=== PATIENT | female | born 2000 | race Hispanic/Latino ===

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

== ENCOUNTER 2022-08-15 12:58 | Emergency (ER) | payer OTHER ==
[~2022-08-15] VITALS: Ht 160 cm; Wt 90.9 kg
[~2022-08-15 12:58] MED LIST changes: +COLA100C5 PO; +IBUP80TA PO; +OXYC-517 PO; +PRENCHW PO
[2022-08-15 12:59] VITALS: BP 132/72
[2022-08-15] MEDS ORDERED: NS 1,000 ML IV ONE (13:45)
[2022-08-15 14:28] LABS: BASO % 0.4 % (0.0-1.0); EOS # 0.2 10^3/uL (0.0-0.5); EOS % 2.1 % (0.0-3.0); HEMATOCRIT 43.8 % (36.0-47.0); LYMPH # 1.9 10^3/uL (1.5-5.0); LYMPH % 23.3 % (24.0-44.0); MEAN CORPUSCULAR HEMOGLOBIN 27.7 pg (27.0-33.0); MEAN CORPUSCULAR VOLUME 86.6 fl (80.0-96.0); MONO # 0.4 10^3/uL (0.0-0.8); MONO % 4.2 % (2.0-8.0); NEUTROPHILS # 5.8 10^3/uL (1.5-8.5); NEUTROPHILS % 69.6 % (36.0-66.0); PLATELET COUNT, AUTOMATED 422 10^3/uL (150-450); RED BLOOD COUNT 5.06 10^6/uL (4.00-5.40); WHITE BLOOD COUNT 8.3 10^3/uL (4.0-10.0)
[2022-08-15 14:51] LABS: LIPASE 28 U/L (12-53)
[2022-08-15 14:53] LABS: ALKALINE PHOSPHATASE 95 U/L (46-116); ALT/SGPT 17 U/L (7.0-40); AST/SGOT 13 U/L (<34); BILIRUBIN,DIRECT 0.1 MG/DL (<0.4); BILIRUBIN,TOTAL 0.3 MG/DL (0.3-1.2); BLOOD UREA NITROGEN 19 MG/DL (9-23); CARBON DIOXIDE LEVEL 30 MMOL/L (20-31); CHLORIDE LEVEL 106 MMOL/L (98-107); CREATININE FOR GFR 0.81 MG/DL (0.55-1.30); GLUCOSE, FASTING 92 MG/DL (60-100); SODIUM LEVEL 142 MMOL/L (136-145); TOTAL PROTEIN 7.5 G/DL (5.7-8.2)
[2022-08-15 16:16] LABS: GC DNA AMPLIFICATION NEGATIVE (NEGATIVE)
[2022-08-15] MEDS ORDERED: NITR1CAP11 PO (16:55)
[2022-08-15] MEDS ORDERED: ISOVUE-370 76% 100ML VIAL As Ordered ONE (17:10)
== END 2022-08-15 17:00 | disposition left against medical advice (07) ==
LOC: M ED 12:58
DX: N39.0 Urinary tract infection, site not specified (principal); Z53.9 Procedure and treatment not carried out, unspecified reason; Z79.899 Other long term (current) drug therapy; Z88.6 Allergy status to analgesic agent

== ENCOUNTER 2023-05-28 06:38 | Observation (INO) | payer OTHER ==
[2023-05-28] VITALS (8 sets, daily range): BP systolic 112–126; BP diastolic 55–60; TEMP 96.6–105; O2SAT 94–100
[~2023-05-28] VITALS: Ht 157.5 cm; Wt 102.6 kg
[~2023-05-28 06:38] MED LIST changes: +GABA-1171 PO; +LR 1,000 ML IV SCH; +NITR1CAP11 PO; +ceFAZolin SOD 2 GM in IV 1 EA IV ONE
[2023-05-28 07:04] LABS: HEMATOCRIT 42.4 % (36.0-47.0); HEMOGLOBIN 13.6 g/dl (12.0-15.5); MEAN CORPUSCULAR HGB CONC 32.1 g/dl (32.0-36.5); MEAN CORPUSCULAR VOLUME 87.4 fl (80.0-96.0); PLATELET COUNT, AUTOMATED 409 10^3/uL (150-450); RED BLOOD COUNT 4.85 10^6/uL (4.00-5.40); WHITE BLOOD COUNT 11.2 10^3/uL (4.0-10.0)
[2023-05-28] MEDS ORDERED: LR 1,000 ML IV SCH (07:10)
[2023-05-28] MEDS ORDERED: SUGAMMADEX SODIUM 500 MG/5 ML VIAL (BRIDION) As Ordered ONE (07:15)
[2023-05-28] MEDS ORDERED: MIDAZOLAM INJ 2MG/2ML VIAL As Ordered ONE (07:15)
[2023-05-28] MEDS ORDERED: propofoL 200 MG/20 ML VIAL As Ordered ONE ×2 (07:15→10:39)
[2023-05-28] MEDS ORDERED: fentaNYL 100 MCG/2 ML INJECTION As Ordered ONE (07:15)
[2023-05-28] MEDS ORDERED: ROCURONIUM BROMIDE 50MG/5ML VIAL As Ordered ONE (07:15)
[2023-05-28] MEDS ORDERED: LIDOCAINE 2% 100MG/5ML SDV (FOR ANES.) As Ordered ONE (07:15)
[2023-05-28] MEDS ORDERED: ONDANSETRON 4MG 2ML VIAL As Ordered ONE (07:15)
[2023-05-28] MEDS ORDERED: ACETAMINOPHEN 1000MG 100ML IV BAG As Ordered ONE (08:20)
[2023-05-28] MEDS ORDERED: HYDROmorphone HCL 2MG/ML 1ML VIAL As Ordered ONE (08:45)
[2023-05-28] MEDS ORDERED: KETOROLAC 60MG 2ML VIAL As Ordered ONE (09:33)
[2023-05-28] MEDS ORDERED: fentaNYL 100 MCG/2 ML INJECTION IV PRN (10:30)
[2023-05-28] MEDS ORDERED: ONDANSETRON 4MG 2ML VIAL IV PRN ×2 (10:30→12:35)
[2023-05-28] MEDS: MORPHINE 2 MG/ML 1ML VIAL IV PRN ×4 (11:21→11:49)
[2023-05-28] MEDS: oxyCODONE 5MG TAB PO PRN ×2 (11:21→11:52)
[2023-05-28] MEDS ORDERED: PROMETHAZINE 25MG/ML 1ML VIAL IV PRN (12:35)
[2023-05-28] MEDS ORDERED: oxyCODONE 5MG TAB PO PRN ×2 (12:35)
[2023-05-28] MEDS ORDERED: ACETAMINOPHEN TAB 650MG DOSE (2X325MG) PO PRN (12:35)
[2023-05-28] MEDS ORDERED: SIMETHICONE 80MG CHEW TAB PO PRN (12:35)
[2023-05-28] MEDS ORDERED: ACETAMINOPHEN 500 MG TAB PO PRN (12:35)
[2023-05-28] MEDS: LR 1,000 ML IV SCH ×2 (14:03→19:45)
[2023-05-28] MEDS: DOCUSATE SODIUM 100MG CAPSULE PO SCH (19:45)
[2023-05-28] MEDS: diphenhydrAMINE 50MG CAP PO PRN (19:45)
[2023-05-28] MEDS: KETOROLAC 30 MG/ML 1ML VIAL IV SCH (19:45)
[2023-05-29 02:00] VITALS: BP 102/54; TEMP 98.5; O2SAT 92
[2023-05-29] MEDS: KETOROLAC 30 MG/ML 1ML VIAL IV SCH ×2 (03:34→07:53)
[2023-05-29] MEDS: diphenhydrAMINE 50MG CAP PO PRN (03:53)
[2023-05-29 06:00] VITALS: BP 101/52; TEMP 98.5; O2SAT 96
[2023-05-29] MEDS: DOCUSATE SODIUM 100MG CAPSULE PO SCH (07:53)
[2023-05-29 08:49] LABS: BASO % 0.2 % (0.0-1.0); EOS % 0.2 % (0.0-3.0); LYMPH # 3.2 10^3/uL (1.5-5.0); MEAN CORPUSCULAR HEMOGLOBIN 28.7 pg (27.0-33.0); MEAN CORPUSCULAR HGB CONC 32.6 g/dl (32.0-36.5); MEAN CORPUSCULAR VOLUME 88.1 fl (80.0-96.0); MONO # 0.8 10^3/uL (0.0-0.8); MONO % 5.9 % (2.0-8.0); NEUTROPHILS # 10.2 10^3/uL (1.5-8.5); NEUTROPHILS % 71.3 % (36.0-66.0); PLATELET COUNT, AUTOMATED 348 10^3/uL (150-450); RED BLOOD COUNT 4.04 10^6/uL (4.00-5.40); WHITE BLOOD COUNT 14.3 10^3/uL (4.0-10.0)
[2023-05-29 08:51] LABS: HEMATOCRIT 35.6 % (36.0-47.0); HEMOGLOBIN 11.6 g/dl (12.0-15.5)
[2023-05-29] MEDS ORDERED: IBUPROFEN 800 MG TAB PO SCH (16:00)
== END 2023-05-29 10:22 | disposition home or self-care (01) ==
LOC: M SDC 06:38 → M RR INP 06:39 → M OBS 13:35
PROVIDERS: ADMIT Obstetrics & Gynecology; ATTEND Obstetrics & Gynecology
DX: R10.2 Pelvic and perineal pain (principal); K29.50 Unspecified chronic gastritis without bleeding; M18.9 Osteoarthritis of first carpometacarpal joint, unspecified; Z88.6 Allergy status to analgesic agent; Z88.8 Allergy status to other drugs, medicaments and biological substances; Z79.899 Other long term (current) drug therapy
CPT/HCPCS: 36415; 58570; 81025; 85025; 85027; 86850; 86900; 86901; 88307; 96361; 96374; 96376; A6024; J0131; J0665; J1100; J1170; J1885; J2250; J2405; J3010